=== PATIENT | male | born 1950 | race Caucasian/White ===

== ENCOUNTER → 2016-09-04 | Outpatient (CLI) | payer OTHER ==
[~2016-09-04] MED LIST: ACETAMINOPHEN325 M1 PO; BACLOFEN 10MG T10 M1 PO; BENADRYL25 MG PO; BISMATROL262 MG/15 PO; CALCIPOTRIENE60 G1 TOP; CLOBETASOL PROP50 G1 TOP; DEXAMETHASONE0.5 MG; FLEXERIL PO; HYDROCODONE-AP1 EA12 PO; HYDROXYZINE PAM50 MG PO; IBUPROFEN 400400 M1 PO; LAMICTAL XR200 MG PO; LAMICTAL100 MG PO; LEXAPRO 10 MG T10 MG PO; MECLIZINE HCL25 M1 PO; MOM PO; PERCOCET PO; PHENERGAN 25 MG25 M1 PO; POTASSIUM20 PO; ROBITUSSIN100 MG/5 M PO; TRIAMCINOLONE 080 G3 TOP; ULTRAM 50MG TAB50 MG PO; VALIUM2 MG PO; ZYPREXA5 MG PO
== END ==
LOC: RAD 10:08
DX: M47.812 Spondylosis without myelopathy or radiculopathy, cervical region (principal); E04.1 Nontoxic single thyroid nodule

== ENCOUNTER → 2018-06-21 | Outpatient (CLI) | payer OTHER | LOC: RAD 16:02 | DX: M16.0 Bilateral primary osteoarthritis of hip (principal) ==

== ENCOUNTER 2019-07-30 21:57 | Emergency (ER) | payer OTHER ==
[~2019-07-30] VITALS: Ht 157.5 cm; Wt 70.3 kg
[2019-07-31] MEDS ORDERED: KEFLEX500 M1 PO (00:13)
[2019-07-31 00:49] VITALS: BP 115/74
== END 2019-07-31 00:50 | disposition home or self-care (01) ==
LOC: ER 21:57
DX: S01.311A Laceration without foreign body of right ear, initial encounter (principal); H10.9 Unspecified conjunctivitis; F32.9 Major depressive disorder, single episode, unspecified; G80.9 Cerebral palsy, unspecified; W19.XXXA Unspecified fall, initial encounter; Y93.89 Activity, other specified; Y92.89 Other specified places as the place of occurrence of the external cause; Y99.8 Other external cause status

== ENCOUNTER → 2020-11-22 | Outpatient (CLI) | payer OTHER ==
[~2020-11-22] MED LIST changes: +KEFLEX500 M1 PO
[2020-11-22 15:11] LABS: ABSOLUTE NEUTROPHILS 5.8 thou/uL (1.4-8.2); BASOPHILS 0.5 % (0.0-2.0); EOSINOPHILS 1.3 % (0.0-3.0); HEMATOCRIT 41.3 % (42.0-52.0); HEMOGLOBIN 13.7 gm/dL (14.0-18.0); LYMPHOCYTES 14.6 % (24.0-44.0); MCH 29.2 pg (26.0-34.0); MCHC 33.1 g/dL (28.0-37.0); MCV 88.1 fL (80.0-100.0); MONOCYTES 11.6 % (1.0-8.0); PLATELET COUNT 316 thou/uL (150-400); RBC 4.69 mil/uL (4.50-6.00); RDW 12.9 % (10.5-14.5)
[2020-11-22 15:34] LABS: ALBUMIN 2.9 g/dL (3.4-5.0); CALCIUM 9.4 mg/dL (8.5-10.1); CREATININE 1.2 mg/dL (0.7-1.3); POTASSIUM 3.8 mmol/L (3.5-5.1); TOTAL BILIRUBIN 0.8 mg/dL (0.2-1.0); TOTAL PROTEIN 7.2 g/dL (6.4-8.2)
[2020-11-22 15:55] LABS: FOLIC ACID 11.7 ng/mL (8.6-58.9)
== END ==
LOC: RAD 14:07
PROVIDERS: ATTEND Family Medicine
DX: R25.2 Cramp and spasm (principal); M79.609 Pain in unspecified limb; Z00.00 Encounter for general adult medical examination without abnormal findings

== ENCOUNTER 2021-05-19 21:50 | Emergency (ER) | payer OTHER ==
[~2021-05-19] VITALS: Ht 157.5 cm; Wt 59.7 kg
--- NOTE | ~2021-05-19 | EMS ---
[address] [address] EMS Patient Care Report Name: SID RAHMAN Room #: REG LAURA Pierre#: [id number] Admission: 05/19/21 Attend Phys: Discharge: Date of : 50 Report #: [id number] THIS REPORT FOR: //name// Report Transmitted: 05/19/2021 21:32 EMS Care Summary [place], [place] Incident [id number] @ 05/19/2021 21:15 Incident Location [address] [place], [place] [id number] Patient SID RAHMAN Male, 70 Years 1950 Patient Address [id number] [place] [address] Patient History Seizures, Chief Complaint confusion Disposition Transported No Lights/[place] Dispatch Reason Sick Person Transported To [facility] Narrative staff of longterm called for resident that was not acting like his normal self. they state he was watching TV and when he got up to feed his dog, he started walking in circles , singing Happy Birthday. on our arrival, staff states that "he is doing better, but he's still not quite himself". pt reported to normally know month and President, of which he knows neither, currently. pt has no physical deficits. pt to be eval at [facility]. pt to cot, tx as listed in flow chart, transport w/o change. report to rn on arrival. [address] [address] EMS Patient Care Report Name: SID RAHMAN Room #: REG LAURA Acosta.#: [id number] Admission: 05/19/21 Attend Phys: Discharge: Date of : 50 Report #: [id number] Initial Vitals @21:33P: 82,R: 18,BP: 121/72,Pain: 0/10,GCS: 14,Glucose: 120,SpO2: 94,Revised Trauma: 12, Assessments @21:22MENTAL:Confused,Person Oriented,Place Oriented,SKIN:No Abnormalities,HEENT:Eyes: Left: Other,Head/Face: No Abnormalities,LUNG SOUNDS:ABDOMEN:PELVIS//GI:EXTREMITIES:PULSE:Radial: 2+ Normal,NEURO:Slurred Speech, Impression Confusion/Delirium Procedures @21:22 ALS Assessment Response: Unchanged @21:25 Stretcher Response: Unchanged @21:35 3-Lead ECG Response: Unchanged @21:33 IV Therapy - Saline Lock 10cc (20 ga) Site: Hand-Right Response: UnchangedSucceeded Timeline 21:14,Call Received 21:14,Dispatch Notified 21:15,Dispatched 21:16,En Route 21:20,On Scene 21:21,At Patient 21:22,ALS Assessment,Response: Unchanged 21:25,Stretcher,Response: Unchanged 21:33,IV Therapy - Saline Lock 10cc 20 ga Site: Hand-Right,Response: UnchangedSucceeded, 21:33,BP: 121/72 M,PULSE: 82,RR: 18 R,SPO2: 94 Ox,ETCO2: ,B,PAIN: 0,GCS: 14, 21:35,3-Lead ECG,Response: Unchanged 21:36,Depart Scene 21:45,At Destination 22:07,Call Closed Disclaimer v1.1 Copyright 2020 [employer] This EMS Care Summary contains data elements from the applicable legal record (which may be displayed differently). It is designed to provide pertinent information for the following purposes: continuity of care, clinical quality, and state data reporting. The complete legal record is available to ED staff and administrators of the receiving hospital in [facility] Patient Tracker. All data [facility] [address] [place] [address] EMS Patient Care Report Name: SID RAHMAN Room #: REG LAURA Pierre#: [id number] Admission: 05/19/21 Attend Phys: Discharge: Date of : 50 Report #: [id number] is provided "as is."
[2021-05-19 22:29] LABS: ABSOLUTE NEUTROPHILS 3.4 thou/uL (1.4-8.2); BASOPHILS 0.7 % (0.0-2.0); EOSINOPHILS 1.6 % (0.0-3.0); HEMATOCRIT 46.2 % (42.0-52.0); HEMOGLOBIN 15.1 gm/dL (14.0-18.0); LYMPHOCYTES 27.4 % (24.0-44.0); MCH 28.6 pg (26.0-34.0); MCHC 32.6 g/dL (28.0-37.0); MCV 87.7 fL (80.0-100.0); PLATELET COUNT 171 thou/uL (150-400); POLYS 62.3 % (36.0-66.0); RBC 5.27 mil/uL (4.50-6.00); RDW 14.4 % (10.5-14.5); WBC 5.5 thou/uL (4.0-11.0)
[2021-05-19 22:36] LABS: CALCIUM 8.6 mg/dL (8.5-10.1); CREATININE 1.2 mg/dL (0.7-1.3); POTASSIUM 3.9 mmol/L (3.5-5.1)
[2021-05-19 22:46] LABS: ALBUMIN 3.4 g/dL (3.4-5.0); TOTAL BILIRUBIN 1.1 mg/dL (0.2-1.0); TOTAL PROTEIN 6.8 g/dL (6.4-8.2)
[2021-05-19 23:34] LABS: URINE BILIRUBIN NEGATIVE (Negative); URINE BLOOD NEGATIVE (Negative); URINE CLARITY CLEAR; URINE COLOR YELLOW; URINE GLUCOSE-RANDOM* NEGATIVE (Negative); URINE KETONES NEGATIVE (Negative); URINE LEUKOCYTES-REFLEX NEGATIVE (Negative); URINE NITRITE-REFLEX NEGATIVE (Negative); URINE PROTEIN (DIPSTICK) NEGATIVE (Negative); URINE SPECIFIC GRAVITY 1.025 (1.005-1.035)
[2021-05-20 00:56] VITALS: BP 118/73
--- NOTE | 2021-05-20 08:20 | EKG ---
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 hart : 1950 Requested By: David Inman Order Number: [id number] MD: Flaco Zaldivar Measurements Intervals [place] Rate: 68 P: 46 RI: 146 QRS: 25 QRSD: 94 T: 31 QT: 419 QTc: 446 Interpretive Statements Sinus rhythm No significant abnormality Compared to ECG 04/20/2015 22:51:10 No significant change was found Electronically Signed On 05-20-2021 8:20:32 GUEST SERVICE REPRESENTATIVE by Flaco Zaldivar [email or web address] <ELECTRONICALLY SIGNED> By: Flaco Zaldivar MD, [facility] 05/20/21 0820 [id number] Flaco Zaldivar MD, FACC /EPI
== END 2021-05-20 00:57 ==
LOC: ER 21:50
PROVIDERS: Emergency Medicine
DX: R41.0 Disorientation, unspecified (principal); Z20.822 Contact with and (suspected) exposure to COVID-19; G40.909 Epilepsy, unspecified, not intractable, without status epilepticus; Z79.899 Other long term (current) drug therapy